=== PATIENT | female | born 1960 | race Caucasian/White ===

== ENCOUNTER 2017-08-25 09:34 | Outpatient (CLI) | payer OTHER ==
[~2017-08-25 09:34] MED LIST: SYNTHROID112 MCG PO
== END 2017-08-25 09:42 | disposition home or self-care (01) ==
LOC: LAB 09:34
DX: D55.0 Anemia due to glucose-6-phosphate dehydrogenase [G6PD] deficiency (principal); E04.0 Nontoxic diffuse goiter; I11.0 Hypertensive heart disease with heart failure; D53.9 Nutritional anemia, unspecified; E78.2 Mixed hyperlipidemia; N39.0 Urinary tract infection, site not specified

== ENCOUNTER 2018-01-23 09:42 | Outpatient (CLI) | payer OTHER | END 2018-01-23 09:54 | disposition home or self-care (01) | LOC: LAB 09:42 | DX: I10 Essential (primary) hypertension (principal); D53.8 Other specified nutritional anemias; N39.0 Urinary tract infection, site not specified; E78.2 Mixed hyperlipidemia; E04.0 Nontoxic diffuse goiter; N36.2 Urethral caruncle ==

== ENCOUNTER 2018-01-23 11:00 | Outpatient (CLI) | payer OTHER | END 2018-01-23 14:53 | disposition home or self-care (01) | LOC: SONOGRAMA 11:00 | DX: E04.0 Nontoxic diffuse goiter (principal); E78.2 Mixed hyperlipidemia; E04.2 Nontoxic multinodular goiter ==

== ENCOUNTER → 2018-04-27 10:08 | Outpatient (CLI) | payer OTHER | END | disposition home or self-care (01) | LOC: LAB 10:08 | DX: I11.0 Hypertensive heart disease with heart failure (principal); D53.8 Other specified nutritional anemias; N39.0 Urinary tract infection, site not specified; E04.0 Nontoxic diffuse goiter; E78.2 Mixed hyperlipidemia; E58 Dietary calcium deficiency ==

== ENCOUNTER 2018-08-24 08:30 | Outpatient (CLI) | payer OTHER | END 2018-08-24 14:54 | disposition home or self-care (01) | LOC: LAB 08:30 | DX: I11.0 Hypertensive heart disease with heart failure (principal); D53.8 Other specified nutritional anemias; E78.49 Other hyperlipidemia; N39.0 Urinary tract infection, site not specified; E04.0 Nontoxic diffuse goiter; E11.9 Type 2 diabetes mellitus without complications; E55.9 Vitamin D deficiency, unspecified ==

== ENCOUNTER 2019-01-25 08:25 | Outpatient (CLI) | payer OTHER | END 2019-01-25 15:00 | disposition home or self-care (01) | LOC: LAB 08:25 | DX: E78.2 Mixed hyperlipidemia (principal); R73.09 Other abnormal glucose; E04.0 Nontoxic diffuse goiter; E61.2 Magnesium deficiency; N39.0 Urinary tract infection, site not specified; E61.7 Deficiency of multiple nutrient elements; E55.9 Vitamin D deficiency, unspecified; N36.2 Urethral caruncle ==

== ENCOUNTER 2019-04-22 08:38 | Outpatient (CLI) | payer OTHER | END 2019-04-22 08:43 | disposition home or self-care (01) | LOC: LAB 08:38 | DX: I10 Essential (primary) hypertension (principal); D53.8 Other specified nutritional anemias; E04.8 Other specified nontoxic goiter; E06.3 Autoimmune thyroiditis; N39.0 Urinary tract infection, site not specified; E78.2 Mixed hyperlipidemia ==

== ENCOUNTER → 2019-04-22 | Outpatient (CLI) | payer OTHER | END | disposition home or self-care (01) | LOC: SONOGRAMA 09:52 → MAMO-SONO 13:15 | DX: E04.8 Other specified nontoxic goiter (principal); E06.3 Autoimmune thyroiditis ==

== ENCOUNTER 2019-08-24 08:58 | Outpatient (CLI) | payer OTHER | END 2019-08-24 09:12 | disposition home or self-care (01) | LOC: LAB 08:58 | DX: N39.0 Urinary tract infection, site not specified (principal); I11.0 Hypertensive heart disease with heart failure; N36.2 Urethral caruncle; E78.2 Mixed hyperlipidemia; E04.8 Other specified nontoxic goiter; E55.9 Vitamin D deficiency, unspecified; D53.8 Other specified nutritional anemias ==

== ENCOUNTER → 2020-02-18 09:17 | Outpatient (CLI) | payer OTHER | END | disposition home or self-care (01) | LOC: LAB 09:17 | PROVIDERS: ATTEND Internal Medicine Endocrinology, Diabetes & Metabolism | DX: E04.8 Other specified nontoxic goiter (principal); I11.0 Hypertensive heart disease with heart failure; E11.9 Type 2 diabetes mellitus without complications; E78.2 Mixed hyperlipidemia; E78.89 Other lipoprotein metabolism disorders; N36.2 Urethral caruncle; N39.0 Urinary tract infection, site not specified ==

== ENCOUNTER → 2020-05-18 09:29 | Outpatient (CLI) | payer OTHER | END | disposition home or self-care (01) | LOC: LAB 09:29 | PROVIDERS: ATTEND Internal Medicine Endocrinology, Diabetes & Metabolism | DX: E04.8 Other specified nontoxic goiter (principal); I11.0 Hypertensive heart disease with heart failure; E78.2 Mixed hyperlipidemia; R73.03 Prediabetes; N18.2 Chronic kidney disease, stage 2 (mild) ==

== ENCOUNTER 2020-05-21 10:55 | Outpatient (CLI) | payer OTHER | END 2020-05-21 15:00 | disposition home or self-care (01) | LOC: LAB 10:55 | PROVIDERS: ATTEND Internal Medicine Endocrinology, Diabetes & Metabolism | DX: E04.8 Other specified nontoxic goiter (principal); I11.0 Hypertensive heart disease with heart failure; E78.2 Mixed hyperlipidemia; E11.9 Type 2 diabetes mellitus without complications ==

== ENCOUNTER 2020-08-07 08:54 | Outpatient (CLI) | payer OTHER | END 2020-08-07 09:06 | disposition home or self-care (01) | LOC: LAB 08:54 | PROVIDERS: ATTEND Internal Medicine Endocrinology, Diabetes & Metabolism | DX: I11.0 Hypertensive heart disease with heart failure (principal); E78.2 Mixed hyperlipidemia; E78.01 Familial hypercholesterolemia; K76.1 Chronic passive congestion of liver; E55.9 Vitamin D deficiency, unspecified; N39.0 Urinary tract infection, site not specified ==

== ENCOUNTER 2020-08-07 09:48 | Outpatient (CLI) | payer OTHER | END 2020-08-07 10:09 | disposition home or self-care (01) | LOC: SONOGRAMA 09:48 | PROVIDERS: ATTEND Internal Medicine Endocrinology, Diabetes & Metabolism | DX: E06.0 Acute thyroiditis (principal) ==

== ENCOUNTER 2020-10-23 08:13 | Outpatient (CLI) | payer OTHER | END 2020-10-23 08:16 | disposition home or self-care (01) | LOC: LAB 08:13 | DX: T78.3XXA Angioneurotic edema, initial encounter (principal); L50.0 Allergic urticaria ==

== ENCOUNTER → 2020-12-22 09:11 | Outpatient (CLI) | payer OTHER | END | disposition home or self-care (01) | LOC: LAB 09:11 | PROVIDERS: ATTEND Internal Medicine Endocrinology, Diabetes & Metabolism | DX: I11.0 Hypertensive heart disease with heart failure (principal); E78.2 Mixed hyperlipidemia; N39.0 Urinary tract infection, site not specified; E04.8 Other specified nontoxic goiter; E58 Dietary calcium deficiency; E61.3 Manganese deficiency; E61.7 Deficiency of multiple nutrient elements ==

== ENCOUNTER 2024-10-18 11:47 | Outpatient (CLI) | payer OTHER | END 2024-10-18 11:51 | disposition home or self-care (01) | LOC: SONOGRAMA 11:47 | PROVIDERS: ATTEND Specialist/Technologist, Other Nephrology | DX: R10.9 Unspecified abdominal pain (principal); N18.30 Chronic kidney disease, stage 3 unspecified; R31.9 Hematuria, unspecified ==